=== PATIENT | male | born 1995 | race Caucasian/White ===

== ENCOUNTER 2017-07-04 08:06 | Emergency (ER) | payer BC, MEDICAID ==
[2017-07-04 08:32] VITALS: BP 131/80
[2017-07-04] MEDS ORDERED: methylPREDNISolone 125 MG* 2 ML VIAL IM ONE (08:56)
[2017-07-04] MEDS ORDERED: cefTRIAXone VIAL(*) 1,000 MG VIAL IM ONE (08:56)
[2017-07-04] MEDS ORDERED: Lidocaine 1% MPF* 2 ML VIAL INJ ONE (09:01)
--- NOTE | 2017-07-04 10:10 | UC ---
Davian Messer Tecjoon, scribed for Lani Worthington DO on 07/04/17 at 0853 . Throat Pain/Nasal Andi HPI - HPI Summary HPI Summary: This patient is a 22 year old male presenting [place] [facility] [place] chief complaint of sore throat since 2 days ago. Patient states that after recovering from a stomach bug a week ago, the sore throat presented itself 2 days ago this evening and is worse on the left side of his throat. The pain is described as stabbing. The pain is rated 7/10 in severity. Symptoms aggravated by swallowing and opening jaw too wide. Symptoms alleviated by nothing. Patient additionally reports earache. Patient denies f/c, coughing, sinus congestion, nausea, vomiting, abd pain, fatigue. - History of Current Complaint Chief Complaint: UCRespiratory Stated Complaint: SORE THROAT Time Seen by Provider: 07/04/17 08:27 Hx Obtained From: Patient Onset/Duration: Gradual Onset, Lasting Days - 2, Still Present Severity: Moderate Pain Intensity: 7 - stabbing Pain Scale Used: 0-10 Numeric Cough: None Associated Signs & Symptoms: Positive: Negative - coughing, sinus congestion, nausea, vomiting, abd pain, fatigue, Dysphagia - pain, Other - earache. Negative: FB Sensation, Drooling, Wheezing, Hoarseness, Sinus Discomfort, Nasal Discharge, Fever, Vomiting, Rash Related History: Seasonal Allergies - Allergies/Home Medications Allergies/Adverse Reactions: Allergies Allergy/AdvReac Type Severity Reaction Status Date / Time No Known Allergies Allergy Verified 07/04/17 08:18 Home Medications: Home Medications Ibuprofen [Ibuprofen 200] 800 mg PO Q8HR PRN 07/04/17 [History Confirmed ] PMH/Surg Hx/FS Hx/Imm Hx - Additional Past Medical History Additional PMH: Patient states he "feels like he's had a lot more sore throats than the average person" Previously Healthy: Yes Endocrine History: Other - negative: diabetes Other Endocrine History: negative: diabetes Cardiovascular History: Other - negative: hypertension Other Cardiovascular History: negative: hypertension - Surgical History Surgical History: Yes Surgery Procedure, Year, and Place: shoulder(labrum)- 2014 - Family History Known Family History: Positive: Diabetes Negative: Cardiac Disease, Hypertension - Social History Occupation: Student Alcohol Use: Weekly Substance Use Type: Marijuana Substance Use Comment - Amount & Last Used: occasionally Smoking Status (MU): Never Smoked Tobacco Have You Smoked in the Last Year: No - Immunization History Most Recent Influenza Vaccination: unknown Vaccination Up to Date: Yes Review of Systems Constitutional: Negative - fatigue Skin: Negative ENT: Negative - sinus congestion, Sore Throat, Ear Ache Respiratory: Negative - cough Gastrointestinal: Negative - nausea, vomiting, abd pain Neurological: Negative All Other Systems Reviewed And Are Negative: Yes Physical Exam Triage Information Reviewed: Yes Vital Signs: Initial Vital Signs Temp 98.1 F 07/04/17 08:13 Pulse 90 07/04/17 08:13 Resp 14 07/04/17 08:13 BP 131/80 07/04/17 08:13 Pulse Ox 100 07/04/17 08:13 Vital Signs Reviewed: Yes - Additional Comments Appearance: Well-Appearing, No Pain Distress, Well-Nourished Eyes: conjunctiva clear, no discharge ENT: Hearing grossly normal, no muffled/hoarse voice. Pharyngeal erythema. Impressively, asymmetrical swollen tonsils. Asymmetrical palate. no fluctulance Neck: Normal, Supple Respiratory/Lung Sounds: Lungs clear, Normal breath sounds, No respiratory distress, No accessory muscle use Cardiovascular: RRR, No murmur Abdomen: Nontender, Soft, no guarding, not distended Musculoskeletal: Normal Neurological: Alert, muscle tone normal Psychiatric:Normal, age appropriate behavior Skin: Normal, Warm, Dry, Normal color Throat Pain/Nasal Course/Dx - Course Course Of Treatment: This patient is a 22 year old male presenting to [facility] [place] with a chief complaint of sore throat since 2 days ago. Patient states that after recovering from a stomach bug a week ago, the sore throat presented itself 2 days ago this evening and is worse on the left side of his throat. The pain is described as stabbing. The pain is rated 7/10 in severity. Symptoms aggravated by swallowing and opening jaw too wide. Symptoms alleviated by nothing. Patient additionally reports earache. Patient denies coughing, sinus congestion, nausea, vomiting, abd pain, fatigue. Throat Culture Routine obtained. In the [facility] course the patient was given Rocephin, Methylprednisolone , Lidocaine. Patient will be diagnosed with Tonsillitis. Patient will be discharged with prescription for Augmentin and Deltason and follow up from PCP. The patient is agreeable with this plan. Medications reviewed. Allergies reviewed. htn noted. likely d/t pt's condition - Differential Dx/Diagnosis Differential Diagnosis/HQI/PQRI: Pharyngitis, Tonsillitis, URI Provider Diagnoses: tonsilitis - Physician Notification/Consults Instructed by Provider To: Other - referral form - for recurrent left tonsilar swelling to Dr. Peter Discharge - Discharge Plan Condition: Stable Disposition: HOME Prescriptions: Amoxicillin/Clavulanate TAB* [Augmentin TAB 875*] 875 mg PO BID #20 tab Magic Mouth Was-OLIVER/MAAL/LIDO* 5 ml SWISH SPIT QID PRN #100 ml PRN Reason: Pain predniSONE TAB* [Deltasone TAB*] 40 mg PO DAILY #8 tab Patient Education Materials: Tonsillitis (ED) Referrals: Marcin Peter MD [Medical Doctor] - 07/06/17 () No Primary Care Phys,NOPCP [Primary Care Provider] - (tomorrow) Additional Instructions: CORTICOSTEROID MEDICATION: You have been given a medicine of the cortisone class. This medication is used to control inflammation or allergy. It is usually only given for a short period of time, until the acute process subsides. There are usually no side effects from short-term use of cortisone-like medications. Some persons feel an increased sense of well-being and are not sleepy at bedtime. Long-term use of cortisone medications is best avoided, unless required for a severe condition. If your condition does not remit, or relapses after the course of corticosteroid medication, you should consult your physician. Contact the physician if you develop lightheadedness, black or tarry stools , swelling of the legs, or significant rapid change in weight. ROCEPHIN: You have been given an injection of an antibiotic called Rocephin ( ceftriaxone). Sometimes the injection must be combined with antibiotic pills. For some infections, such as an uncomplicated ear infection, Rocephin provides all the antibiotic that's needed. The antibiotic will be in your body for about two days. For serious infections, we usually repeat doses of Rocephin daily. Side effects are very unusual following a shot. Women may develop vaginal yeast infections, and babies can get yeast (thrush) in the mouth following the use of antibiotics. Contact your physician if you have symptoms with this medication. Allergy to this antibiotic can result in hives, wheezing, faintness, or itching. If symptoms of allergy occur, call the doctor at once. AUGMENTIN: Augmentin is a mixture of amoxicillin and clavulanate. Amoxicillin is a member of the penicillin family. It covers the germs likely to cause ear, bronchial, and urinary infections better than plain penicillin. The addition of clavulanate allows it to cover staph infections of the skin, as well as resistant cases of ear and sinus infections. Your physician has chosen Augmentin for you because of the special nature of your situation. Augmentin is best taken with meals. Nausea after taking the medication is rare, but can occur. Diarrhea can occur, particularly in small children. Vaginal yeast infections, and oral thrush in infants are also common. Contact your physician if these problems occur. Allergy to penicillins is common. If you have had an allergic reaction to any drug of the penicillin family, you should never take any other penicillin. Notify your doctor at once if you develop hives, shortness of breath, swelling, or faintness. ANYTIME YOU TAKE AN ANTIBIOTIC, IT IS IMPORTANT TO REPLENISH THE BODY'S SUPPLY OF "GOOD BACTERIA." YOU CAN GET GOOD BACTERIA FROM HIGH QUALITY CULTURED FOODS SUCH LOCAL YOGURT, SOUR KRAUT, DRE HIRO, NATURALLY FERMENTED PICKLES AND PROBIOTIC DRINKS. YOU CAN ALSO GET GOOD BACTERIA FROM A PROBIOTIC SUPPLEMENT. FOLLOW-UP CARE: You should establish with a private physician for follow-up care by tomorrow. If you are unable to get a timely appointment, or if you are worsening, call us or return for re-evaluation. An additional resource available to assist in finding the appropriate physician for your health care needs is the [facility]ician Referral Center. You may contact them by calling [phone]. The documentation as recorded by the Davian cota Tecjoon accurately reflects the service I personally performed and the decisions made by me, Lani Worthington DO.
== END 2017-07-04 09:27 | disposition home or self-care (01) ==
LOC: UCEAST 08:06
DX: J03.90 Acute tonsillitis, unspecified (principal); F12.90 Cannabis use, unspecified, uncomplicated
CPT/HCPCS: 87070; 87651; 96372; 99202; G0463; J0696; J2930

== ENCOUNTER 2017-09-25 13:29 | Emergency (ER) | payer MEDICAID, OTHER ==
[2017-09-25] MEDS: NS 0.9% 1000 ML* 2,000 ML IV ONE ×2 (13:53→13:55)
[2017-09-25 14:11] LABS: ABS Basophils 0 10^3/ul (0-0.2); ABS Eosinophils 0.3 10^3/ul (0-0.6); ABS Monocytes 0.5 10^3/ul (0-0.8); ABS Neutrophils 4.2 10^3/ul (1.5-7.7); ABS Nucleated RBC 0 10^3/ul; Eosinophil % 3.6 % (0-6); Hematocrit 43 % (42-52); Hemoglobin 14.7 g/dl (14.0-18.0); Lymphocyte % 28.8 % (25-47); Mean Corpuscular HGB Conc 34 g/dl (31-36); Mean Corpuscular Hemoglobin 34 pg (27-31); Mean Corpuscular Volume 101 fL (80-94); Nucleated Red Blood Cells % 0; Platelet Count 200 10^3/ul (150-450); Red Blood Count 4.29 10^6/ul (4.0-5.4); Red Cell Distribution Width 13 % (10.5-15); White Blood Count 7.1 10^3/ul (3.5-10.8)
[2017-09-25 14:23] LABS: INR 0.86 (0.77-1.02)
[2017-09-25 14:32] LABS: EGFR Non-African American 106.5 (>60)
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
[2017-09-25] MEDS ORDERED: Potassium Chlor TAB* 20 MEQ TAB.ER PO ONE (15:35)
[2017-09-25 16:02] VITALS: BP 114/72
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
== END 2017-09-25 16:01 | disposition home or self-care (01) ==
LOC: ED 13:29
DX: R41.82 Altered mental status, unspecified (principal); V49.40XA Driver injured in collision with unspecified motor vehicles in traffic accident, initial encounter; Y92.410 Unspecified street and highway as the place of occurrence of the external cause
CPT/HCPCS: 36415; 70450; 70486; 71250; 72125; 74176; 80053; 80320; 80329; 82140; 82550; 82553; 83605; 83690; 83735; 83880; 84443; 84484; 85025; 85610; 85730; 86140; 99283; A9270-GY; G0480

== ENCOUNTER 2018-01-27 11:35 | Emergency (ER) | payer OTHER ==
[2018-01-27 11:52] VITALS: BP 115/75
--- NOTE | 2018-01-27 12:59 | UC ---
Throat Pain/Nasal Andi HPI - HPI Summary HPI Summary: Patient is a 23-year-old male presenting to the ED with complaint of odynophagia without dysphagia 3 days. Also endorses a 103 fever yesterday. Has been taking Tylenol and ibuprofen with a moderate amount of relief. Endorses sweats and chills yesterday, but denies this today however he has been taking OTC medications. He has not taken anything [id number] otherwise for symptom relief. Denies any history of strep throat. Denies any ear pain or eye pain. Denies any chest pain or shortness of breath. He states he has been feeling otherwise well. - History of Current Complaint Chief Complaint: UCGeneralIllness Stated Complaint: SORE THROAT Time Seen by Provider: 01/27/18 11:53 Hx Obtained From: Patient Onset/Duration: Gradual Onset Severity: Moderate Pain Intensity: 4 Pain Scale Used: 0-10 Numeric Associated Signs & Symptoms: Positive: Hoarseness, Other - odynophagia - Epiglottits Risk Factors Epiglottis Risk Factors: Negative - Allergies/Home Medications Allergies/Adverse Reactions: Allergies Allergy/AdvReac Type Severity Reaction Status Date / Time No Known Allergies Allergy Verified 01/27/18 11:52 PMH/Surg Hx/FS Hx/Imm Hx Previously Healthy: Yes - Surgical History Surgical History: Yes Surgery Procedure, Year, and Place: shoulder(labrum)- 2013 - Family History Known Family History: Positive: Diabetes Negative: Cardiac Disease, Hypertension - Social History Occupation: Employed Full-time Lives: With Family Alcohol Use: Weekly Substance Use Type: None Substance Use Comment - Amount & Last Used: occasionally Smoking Status (MU): Never Smoked Tobacco Have You Smoked in the Last Year: No - Immunization History Most Recent Influenza Vaccination: unknown Vaccination Up to Date: Yes Review of Systems Constitutional: Fever, Chills Skin: Negative ENT: Sore Throat Respiratory: Negative Cardiovascular: Negative Motor: Negative Neurovascular: Negative Neurological: Negative Is Patient Immunocompromised?: No All Other Systems Reviewed And Are Negative: Yes Physical Exam Triage Information Reviewed: Yes Appearance: Well-Appearing, No Pain Distress, Well-Nourished Vital Signs: Initial Vital Signs Temp 98 F 01/27/18 11:49 Pulse 110 01/27/18 11:49 Resp 17 01/27/18 11:49 BP 115/75 01/27/18 11:49 Pulse Ox 100 01/27/18 11:49 Vital Signs Reviewed: Yes Eye Exam: Normal Eyes: Positive: Conjunctiva Clear ENT: Positive: Pharyngeal erythema, TMs normal, Tonsillar swelling, Tonsillar exudate. Negative: Hoarse voice, Dental tenderness, Sinus tenderness Dental Exam: Normal Neck exam: Normal Neck: Positive: Supple, Enlarged Nodes @ Cardiovascular Exam: Normal Cardiovascular: Positive: RRR Neurological Exam: Normal Neurological: Positive: Alert Psychological: Positive: Normal Response To Family Skin Exam: Normal Throat Pain/Nasal Course/Dx - Course Course Of Treatment: During the course of treatment, the patient's evaluated for symptoms of odynophagia without dysphagia. On physical examination there is pharyngeal erythema with bilateral tonsillar exudates. Normal BP today, however is tachycardic. 103 fever yesterday. Has been taking Tylenol and ibuprofen with good relief. Strep negative. However due to tonsillar exudates and fever with odynophagia, will treat for possible bacterial pharyngitis and he is given Augmentin and encouraged Cepacol tabs this time. - Differential Dx/Diagnosis Provider Diagnoses: Pharyngitis Discharge - Sign-Out/Discharge Documenting (check all that apply): Patient Departure - Discharge Plan Condition: Stable Disposition: HOME Prescriptions: Amoxicillin/Clavulanate TAB* [Augmentin TAB 875*] 875 mg PO BID #10 tab MDD 2 Patient Education Materials: Pharyngitis (ED) Referrals: No Primary Care Phys,NOPCP [Primary Care Provider] - Additional Instructions: Augmentin twice daily x 5 days Cepacol tabs over the counter Tylenol and ibuprofen may be used intermittently - Billing Disposition and Condition Condition: STABLE Disposition: Home
== END 2018-01-27 12:53 | disposition home or self-care (01) ==
LOC: UCEAST 11:35
DX: J02.9 Acute pharyngitis, unspecified (principal); R50.9 Fever, unspecified
CPT/HCPCS: 87651; 99212; G0463

== ENCOUNTER 2018-04-06 10:23 | Emergency (ER) | payer OTHER ==
[2018-04-06 10:32] VITALS: BP 118/78
--- NOTE | 2018-04-06 10:56 | ED ---
Upper Extremity Pain - HPI Summary HPI Summary: pain in the left shoulder over the last several days. no discrete injury noted. pain in the posterior left shoulder, as if she is getting a vaccination noted some numbness in the left forearm over the pinky and ring finger, no neck pain - History of Current Complaint Chief Complaint: UCUpperExtremity Stated Complaint: SHOULDER PAIN Time Seen by Provider: 04/06/18 10:40 Timing: Intermittent Severity Initially: Moderate Severity Currently: Moderate Pain Location: Shoulder Character: Sharp Aggravating Factor(s): Movement, Lifting Associated Signs & Symptoms: Positive: Negative - Allergies/Home Medications Allergies/Adverse Reactions: Allergies Allergy/AdvReac Type Severity Reaction Status Date / Time No Known Allergies Allergy Verified 04/06/18 10:32 Home Medications: Home Medications NK [No Home Medications Reported] 04/06/18 [History Confirmed 04/06/18] PMH/Surg Hx/FS Hx/Imm Hx Previously Healthy: Yes Endocrine/Hematology History: Denies: Hx Diabetes, Hx Thyroid Disease Cardiovascular History: Denies: Hx Hypertension, Hx Pacemaker/ICD, Other Cardiovascular Problems/ Disorders Respiratory History: Denies: Hx Asthma, Hx Chronic Obstructive Pulmonary Disease (COPD), Other Respiratory Problems/Disorders GI History: Denies: Hx Ulcer, Other GI Disorders Sensory History: Denies: Hx Contacts or Glasses, Hx Hearing Aid Opthamlomology History: Denies: Hx Contacts or Glasses Neurological History: Reports: Hx Migraine - OUTGROWN NOW Denies: Other Neuro Impairments/Disorders Psychiatric History: Denies: Hx Panic Disorder - Surgical History Surgery Procedure, Year, and Place: shoulder(labrum)- 2014 Hx Anesthesia Reactions: No Infectious Disease History: No Infectious Disease History: Denies: Hx Hepatitis, Hx Human Immunodeficiency Virus (HIV), Traveled Outside the [place] in Last 30 Days - Family History Known Family History: Positive: Diabetes Negative: Cardiac Disease, Hypertension - Social History Alcohol Use: Weekly Hx Substance Use: Yes Substance Use Type: Reports: None Substance Use Comment - Amount & Last Used: occasionally Hx Tobacco Use: No Smoking Status (MU): Never Smoked Tobacco Have You Smoked in the Last Year: No Review of Systems Constitutional: Negative Eyes: Negative ENT: Negative Cardiovascular: Negative Respiratory: Negative Gastrointestinal: Negative Musculoskeletal: Other Positive: Other - pain left shoulder Skin: Negative Neurological: Negative All Other Systems Reviewed And Are Negative: Yes Physical Exam Triage Information Reviewed: Yes Vital Signs On Initial Exam: Initial Vitals Temp Pulse Resp BP Pulse Ox 37.1 C 100 20 118/78 100 04/06/18 10:29 04/06/18 10:29 04/06/18 10:29 04/06/18 10:29 04/06/18 10:29 Appearance: Positive: Well-Appearing Skin: Positive: Warm, Dry Neck: Positive: Supple Musculoskeletal: Positive: Other - abduction to 90 degrees, internal rotation slightly restricted on left, external rotation ok Neurological: Positive: Other - numbness in ulnar distribution, Intrinsic muscle hands normal, negative tinels sign, motor strength difficult to assess secondary to give way weakness Psychiatric: Positive: Normal Diagnostics - Vital Signs Vital Signs Temp Pulse Resp BP Pulse Ox 04/06/18 10:29 37.1 C 100 20 118/78 100 - Laboratory Lab Statement: Any lab studies that have been ordered have been reviewed, and results considered in the medical decision making process. 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
--- NOTE | 2018-04-06 11:07 | RAD ---
Indication: LEFT shoulder pain posterior and lateral aspect with paresthesias down the arm. Surgery in 2014. Comparison: October 30, 2013 radiographs and November 08, 2013 MRI. Technique: Internal rotation AP, external rotation Grashey, scapular Y, axillary views LEFT shoulder REPORT AND IMPRESSION: #. Postsurgical change of posterior labral repair. #. Negative for fracture. #. Normal acromioclavicular and glenohumeral joint alignment. #. Negative for calcific tendinopathy or abnormal soft tissue contour.
== END 2018-04-06 11:15 | disposition home or self-care (01) ==
LOC: UCEAST 10:23
DX: S43.422A Sprain of left rotator cuff capsule, initial encounter (principal); X58.XXXA Exposure to other specified factors, initial encounter; Y92.9 Unspecified place or not applicable; G56.22 Lesion of ulnar nerve, left upper limb
CPT/HCPCS: 99211; G0463